=== PATIENT | female | born 1990 ===

== ENCOUNTER 2018-01-16 02:42 | Emergency (ER) | payer OTHER ==
[2018-01-16 02:54] VITALS: RESP 18; TEMP 97.6
[2018-01-16] MEDS ORDERED: TDAP Vaccine 0.5 mL Syr IM ONE ×2 (03:10→03:47)
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
[2018-01-16] MEDS ORDERED: Lidocaine 1% 5ml Abboject IJ STA (03:41)
[2018-01-16 03:48] LABS: ALB/GLOB RATIO 1.3 (1.1-1.8); ALBUMIN 3.8 g/dL (3.0-4.8); ALT/SGPT 22 U/L (7-56); AST/SGOT 20 U/L (14-36); BLOOD UREA NITROGEN 21 mg/dL (7-21); CALCIUM 8.6 mg/dL (8.4-10.5); GFR NON-AFRICAN AMERICAN > 60
[2018-01-16] MEDS ORDERED: Lidocaine 1% 5ml Abboject ONE (03:51)
[2018-01-16 04:02] LABS: INR 0.99; PARTIAL THROMBOPLASTIN TIME 29.1 Seconds (25.1-36.5); PROTHROMBIN TIME 11.3 SECONDS (9.4-12.5)
[2018-01-16 04:03] LABS: BASO # 0.01 K/mm3 (0.0-2.0); BASO % 0.2 % (0.0-3.0); EOS # 0.1 (0.0-0.7); EOS % 1.3 % (1.5-5.0); GRAN # 3.67 (1.4-6.5); GRAN % 67.2 % (50.0-68.0); HEMOGLOBIN 11.8 g/dL (12.0-16.0); LYMPH # 1.4 (1.2-3.4); LYMPH % 24.7 % (22.0-35.0); MEAN CELL VOLUME 80.2 fl (80.0-105.0); MEAN CORPUSCULAR HEMOGLOBIN 27.5 pg (25.0-35.0); MEAN CORPUSCULAR HGB CONC 34.3 g/dl (31.0-37.0); MEAN PLATELET VOLUME 10.2 fl (7.0-11.0); MONO # 0.4 (0.1-0.6); MONO % 6.6 % (1.0-6.0); RBC 4.29 10^6/uL (3.5-6.1); RED CELL DISTRIBUTION WIDTH 13.7 % (11.5-14.5); WHITE BLOOD COUNT 5.5 10^3/uL (4.5-11.0)
[2018-01-16] MEDS ORDERED: Oxycodone/Acetaminophen 5/325 mg Tab PO STA (04:25)
[2018-01-16] MEDS ORDERED: Amoxicillin-Clav 875-125 mg Tab PO STA (06:13)
[2018-01-16 06:34] VITALS: BP 135/80; PULSE 90; O2SAT 98
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
== END 2018-01-16 06:34 | disposition home or self-care (01) ==
LOC: ED 02:42
DX: S02.2XXA Fracture of nasal bones, initial encounter for closed fracture (principal); Y04.0XXA Assault by unarmed brawl or fight, initial encounter; Z32.00 Encounter for pregnancy test, result unknown; Z23 Encounter for immunization

== ENCOUNTER 2018-02-28 09:41 | Emergency (ER) | payer OTHER ==
[2018-02-28 10:26] VITALS: BMI 20.1
[2018-02-28 10:34] VITALS: RESP 18
[2018-02-28] MEDS ORDERED: Sodium Chloride 0.9% 1,000 ML IV SCH (11:00)
--- NOTE | 2018-02-28 11:06 | ED PDOC ---
Arrival/HPI - General Historian: Patient - History of Present Illness Narrative History of Present Illness (Text): 02/28/18 11:40 Patient is a 27-year-old female with PMH of ureteral stent, who came in with a chief complaint of left thumb pain and swelling that began a > 1 week ago after she removed her artificial nail by force. Patient reports her nail became reddish and swollen and has been getting progressively worse over the course of the last 1.5 weeks. Patient states she has some green/yellowish puss that is under her nailbed, and she attempted to puncture it with a tac, however this worsened the pain/swelling. Patient states that this has happened before, where she drained her nailbed of her left index finger herself with a tac. Of note, Patient has history of ureteral stent (L), and states that over the past month she's been experiencing dysuria, hematuria, and increased frequency. Patient otherwise denies nausea, vomiting, fever, chills, headache, chest pain, shortness of breath, and/or diarrhea/constipation. 02/28/18 11:57 Time/Duration: > week Symptom Course: Worsening Quality: Throbbing Severity Level: 6 Associated Symptoms (Text): 02/28/18 11:04 No fever no chills no nausea no vomiting 02/28/18 11:05 Patient complains of dysuria, increased frequency, cloudy dark yellow urine, hematuria, <Blanche Portillo - Last Filed: 02/28/18 15:25> <Onel Kumari - Last Filed: 03/01/18 20:12> - General Chief Complaint: Finger,Hand,&Wrist Time Seen by Provider: 02/28/18 10:28 Past Medical History - Provider Review Nursing Documentation Reviewed: Yes - Patient History Narrative Patient History: 2x previous similar problem - Infectious Disease Hx of Infectious Diseases: None - Cardiac Hx Cardiac Disorders: No - Pulmonary Hx Respiratory Disorders: No - Neurological Hx Neurological Disorder: No - HEENT Other/Comment: Use eyeglasses - Renal Hx Renal Disorder: Yes Hx Kidney Stones: Yes (+ stents) - Endocrine/Metabolic Hx Endocrine Disorders: No - Hematological/Oncological Hx Blood Disorders: Yes (ANEMIA) - Integumentary Hx Dermatological Disorder: No - Musculoskeletal/Rheumatological Hx Musculoskeletal Disorders: No - Gastrointestinal Hx Gastrointestinal Disorders: No - Genitourinary/Gynecological Hx Genitourinary Disorders: No - Psychiatric Hx Psychophysiologic Disorder: No Hx Substance Use: No - Surgical History Hx Orthopedic Surgery: Yes Other/Comment: Metal Selvin to LLeft Femur at age 12. Ureteral stents - Anesthesia Hx Anesthesia: Yes Hx Anesthesia Reactions: No Hx Malignant Hyperthermia: No <Blanche Portillo - Last Filed: 02/28/18 15:25> Family/Social History - Physician Review Nursing Documentation Reviewed: Yes Family/Social History: No Known Family HX Smoking Status: Never Smoked Hx Alcohol Use: No Hx Substance Use: No Hx Substance Use Treatment: No <Blanche Portillo - Last Filed: 02/28/18 15:25> Allergies/Home Meds <Blanche Portillo - Last Filed: 02/28/18 15:25> <Onel Kumari - Last Filed: 03/01/18 20:12> Allergies/Adverse Reactions: Allergies shellfish derived Allergy (Verified 01/27/18 12:04) ANAPHYLAXIS Home Medications: Home Meds Medication Instructions Recorded Confirmed Pnv No.95/Ferrous Fum/Folic AC 1 tab PO DAILY 02/28/18 02/28/18 [ Vitamin Tablet] Review of Systems - Review of Systems Constitutional: Normal Eyes: Normal ENT: Normal Respiratory: Normal Cardiovascular: Normal Gastrointestinal: Normal Genitourinary Female: Dysuria, Frequency, Hematuria Musculoskeletal: Normal Skin: Skin Lesions (swelling, reddness of left thumb) Neurological: Normal Endocrine: Normal Hemo/Lymphatic: Normal Psychiatric: Normal <Blanche Portillo - Last Filed: 02/28/18 15:25> Physical Exam Vital Signs Temp Pulse Resp BP Pulse Ox 02/28/18 10:33 98.4 F 91 H 18 84/69 L 98 Temperature: Afebrile Blood Pressure: Hypotensive Pulse: Tachycardic Respiratory Rate: Normal Appearance: Positive for: Non-Toxic, Comfortable Pain Distress: Moderate Mental Status: Positive for: Alert and Oriented X 3 - Systems Exam Head: Present: Atraumatic, Normocephalic Pupils: Present: PERRL Extroacular Muscles: Present: EOMI Conjunctiva: Present: Normal Ears: Present: Normal Mouth: Present: Moist Mucous Membranes Neck: Present: Normal Range of Motion Respiratory/Chest: Present: Clear to Auscultation, Good Air Exchange. No: Respiratory Distress Cardiovascular: Present: Tachycardic Abdomen: Present: Tenderness (suprapubic ), Normal Bowel Sounds Back: Present: CVA Tenderness (left) Upper Extremity: Present: Swelling, Erythema (left thumb ), Neurovascularly Intact, Capillary Refill < 2s Lower Extremity: Present: Normal Inspection. No: Edema, CALF TENDERNESS Neurological: Present: GCS=15, CN II-XII Intact, Speech Normal Skin: Present: Warm, Dry, Rashes, Normal Color Psychiatric: Present: Alert, Oriented x 3, Normal Insight, Normal Concentration <Blanche Portillo - Last Filed: 02/28/18 15:25> Vital Signs Temp Pulse Resp BP Pulse Ox 02/28/18 16:10 98.3 F 81 18 110/60 100 02/28/18 13:46 86 18 99/71 L 98 02/28/18 10:33 98.4 F 91 H 18 84/69 L 98 <Onel Kumari - Last Filed: 03/01/18 20:12> Medical Decision Making ED Course and Treatment: 02/28/18 12:00 Impression: This is a 27 year old F with PMH of ureteral stent placement (L), pyelonephritis who presents with left thumb pain and dysuria. Assessment: * Paronychia * Pyelonephritis Plan: Paronychia: * No Incision / drainage indicated at this time * Keflex 500mg PO administered * Rocephin 1gram IVPB administered Pyelonephritis vs Obstructive Nephrolithiasis * CMP pending * CBC pending * CK pending * Urine Cx pending * Urinalysis pending * beta hCG pending * Renal ultrasound pending * NS @150mls/hr active * Keflex 500mg PO administered * Rocephin 1gram IVPB administered 02/28/18 12:57 Progress: Lab results available: U/A * Light yellow color * Cloudy appearance * pH 6.5 * Spec. Hyde 1.025 * Positive for: Protein 100, Blood -large H, Leukocyte Esterase - large H, Nitrate - Positive H * Negative for: Glucose, Ketones, Bilirubin * Pending for RBC, Pending for WBC CMP - within normal limits CBC - consistent with anemia; Hgb low 11.3 Medications: * Keflex 500mg PO administered * Rocephin 1gram IVPB administered Recommendations: Patient is to be transferred to higher level of care given that her is complicated by a diagnosis of obstructive nephrolithiasis. 02/28/18 15:34 The patient requested to sign out AGAINST MEDICAL ADVICE. This action is against my medical advice to the patient and the decision was made with informed refusal. The patient was told that further workup and/or immediate transfer for higher level of care is necessary and a full explanation of the rationale was given. The risks of leaving were explained to the patient and include but are not limited to increased morbidity and mortality, , and worsening of known or unknown conditions. Patient was AAOX3 and was able to make this informed decision and understood the clinical situation and my explanation of the risks of leaving. The patient voluntarily accepted these risks and signed an AMA form documenting our conversation. The patient was given the opportunity ask questions and reconsider. The patient was encouraged to return to emergency room at any time for further care. Patient was advised to follow-up with her primary care doctor as soon as possible. Re-evaluation Time: 14:45 Reassessment Condition: Re-examined, Unchanged - RAD Interpretation Radiology Orders: 02/28/18 10:57 RENAL [US] Stat OTHER FINDINGS: Echogenic focus in the renal pelvis likely proximal aspect of the double-J stent IMPRESSION: Unilateral moderate left hydronephrosis. 12mm calculus lower pole collecting system incompletely visualized proximal ureteral stent - Medication Orders Current Medication Orders: Sodium Chloride (Sodium Chloride 0.9%) 1,000 mls @ 150 mls/hr IV .Q6H40M [facility] <Blanche Portillo - Last Filed: 02/28/18 15:25> ED Course and Treatment: 02/28/18 16:38 patient was advised to be admitted to the hospital for acute inpt treatment. patient states that she had to leave in order to prepare herself for admission by finding proper childcare. patient understood to return immediately for new or worsening symptoms. case was discussed with dr. andersen, urology education program coordinator and agrees with patient transfer to [facility] [place] where the patient's urologist is in addition to obgyn consult ation. - Lab Interpretations Lab Results: Total Bilirubin 0.3 mg/dL (0.2-1.3) 02/28/18 12:31 AST 18 U/L (14-36) 02/28/18 12:31 ALT 27 U/L (7-56) 02/28/18 12:31 Alkaline Phosphatase 56 U/L (38-126) 02/28/18 12:31 Total Protein 6.8 g/dL (5.8-8.3) 02/28/18 12:31 Albumin 3.6 g/dL (3.0-4.8) 02/28/18 12:31 Globulin 3.1 gm/dL 02/28/18 12:31 Albumin/Globulin Ratio 1.2 (1.1-1.8) 02/28/18 12:31 Urine Color Light yellow (YELLOW) 02/28/18 12:17 Urine Appearance Cloudy (CLEAR) 02/28/18 12:17 Urine pH 6.5 (4.7-8.0) 02/28/18 12:17 Ur Specific Hyde 1.025 (1.005-1.035) 02/28/18 12:17 Urine Protein 100 mg/dL (<30 mg/dL) H 02/28/18 12:17 Urine Glucose (UA) Negative mg/dL (NEGATIVE) 02/28/18 12:17 Urine Ketones Negative mg/dL (NEGATIVE) 02/28/18 12:17 Urine Blood Large (NEGATIVE) H 02/28/18 12:17 Urine Nitrate Positive (NEGATIVE) H 02/28/18 12:17 Urine Bilirubin Negative (NEGATIVE) 02/28/18 12:17 Urine Urobilinogen 0.2 E.U./dL (<1 E.U./dL) 02/28/18 12:17 Ur Leukocyte Esterase Large Jose Carlos/uL (NEGATIVE) H 02/28/18 12:17 Urine RBC Tntc /hpf (0-2) H 02/28/18 12:17 Urine WBC Tntc /hpf (0-6) H 02/28/18 12:17 Ur Epithelial Cells 3 - 4 /hpf (0-5) 02/28/18 12:17 Urine Bacteria Large /hpf (NONE) 02/28/18 12:17 - RAD Interpretation Radiology Orders: 02/28/18 10:57 RENAL [US] Stat - Medication Orders Current Medication Orders: Sodium Chloride (Sodium Chloride 0.9%) 1,000 mls @ 150 mls/hr IV .Q6H40M MYAH Last Admin: 02/28/18 12:34 Dose: 150 mls/hr eMAR Start Stop Document 02/28/18 12:34 LA (Rec: 02/28/18 12:37 LA [id number]) Intravenous Solution Start Date 02/28/18 Start Time 12:37 End Date 02/28/18 Discontinued Medications Cephalexin Monohydrate (Keflex) 500 mg PO STAT STA; Protocol Stop: 02/28/18 13:49 Last Admin: 02/28/18 14:29 Dose: 500 mg Ceftriaxone Sodium (Rocephin 1 Gram Ivpb) 1 gm in 100 mls @ 100 mls/hr IVPB ONCE STA; Protocol Stop: 02/28/18 15:57 Last Admin: 02/28/18 15:23 Dose: 100 mls/hr eMAR Start Stop Document 02/28/18 15:23 LA (Rec: 02/28/18 15:23 LA [id number]) Intravenous Solution Start Date 02/28/18 Start Time 15:23 End Date 02/28/18 End time 16:23 Total Infusion Time 60 <Onel Kumari - Last Filed: 03/01/18 20:12> Disposition/Present on Arrival - Present on Arrival Any Indicators Present on Arrival: No History of DVT/PE: No History of Uncontrolled Diabetes: No Urinary Catheter: No History of Decub. Ulcer: No History Surgical Site Infection Following: None <Blanche Portillo - Last Filed: 02/28/18 15:25> - Disposition Have Diagnosis and Disposition been Completed?: Yes Disposition Time: 16:28 Isolation: Special Contact Patient Plan: Discharge <Onel Kumari - Last Filed: 03/01/18 20:12> - Disposition Diagnosis: Pyelonephritis, Obstructive nephropathy, Disposition: AGAINST MEDICAL ADVICE Condition: GUARDED Discharge Instructions (ExitCare): Kidney Infection, Urinary Obstruction Additional Instructions: return immediately for any new or worsening symptoms. Referrals: Christa Wills MD [Primary Care Provider] - Follow up with primary Forms: [employer] (Uzbek)
[2018-02-28 12:50] LABS: PH,URINE 6.5 (4.7-8.0); URINE BILIRUBIN NEGATIVE (NEGATIVE); URINE BLOOD LARGE (NEGATIVE); URINE GLUCOSE (UA) NEGATIVE (NEGATIVE); URINE LEUKOCYTE ESTERASE LARGE Leu/uL (NEGATIVE); URINE PROTEIN 100 mg/dL (<30 mg/dL); URINE UROBILINOGEN 0.2 E.U./dL (<1 E.U./dL)
[2018-02-28 12:52] LABS: URINE APPEARANCE CLOUDY (CLEAR); URINE COLOR LIGHT YELLOW (YELLOW)
[2018-02-28 12:56] LABS: BASO # 0.02 K/mm3 (0.0-2.0); BASO % 0.3 % (0.0-3.0); EOS % 0.6 % (1.5-5.0); GRAN # 4.79 (1.4-6.5); GRAN % 71.9 % (50.0-68.0); HEMOGLOBIN 11.3 g/dL (12.0-16.0); LYMPH # 1.5 (1.2-3.4); LYMPH % 22.7 % (22.0-35.0); MEAN CELL VOLUME 80.8 fl (80.0-105.0); MEAN CORPUSCULAR HEMOGLOBIN 27.8 pg (25.0-35.0); MEAN CORPUSCULAR HGB CONC 34.5 g/dl (31.0-37.0); MEAN PLATELET VOLUME 9.8 fl (7.0-11.0); MONO # 0.3 (0.1-0.6); MONO % 4.5 % (1.0-6.0); RBC 4.06 10^6/uL (3.5-6.1); RED CELL DISTRIBUTION WIDTH 13.3 % (11.5-14.5); WHITE BLOOD COUNT 6.7 10^3/uL (4.5-11.0)
[2018-02-28 13:00] LABS: ALB/GLOB RATIO 1.2 (1.1-1.8); ALBUMIN 3.6 g/dL (3.0-4.8); ALT/SGPT 27 U/L (7-56); AST/SGOT 18 U/L (14-36); BLOOD UREA NITROGEN 13 mg/dL (7-21); CALCIUM 9.2 mg/dL (8.4-10.5); GFR NON-AFRICAN AMERICAN > 60
[2018-02-28 13:17] LABS: URINE RBC TNTC /hpf (0-2); URINE WBC TNTC /hpf (0-6)
[2018-02-28 13:18] LABS: URINE BACTERIA LARGE /hpf
--- NOTE | 2018-02-28 14:25 | US ---
Date of service: 02/28/2018 PROCEDURE: Ultrasound of the Kidneys HISTORY: left sided study, pain, rule out obstruction COMPARISON: None available. TECHNIQUE: Sonogram of the kidneys. FINDINGS: RIGHT KIDNEY: Measures: 4.1 x 11.1 cm. Normal in size, contour and echogenicity. No stone, solid mass lesion or hydronephrosis visualized. LEFT KIDNEY: Measures: 6.3 x 12.4 cm. Normal in size, contour and echogenicity. Moderate hydronephrosis. Lower pole calculus 12 mm. OTHER FINDINGS: Echogenic focus in the renal pelvis likely proximal aspect of the double-J stent. IMPRESSION: Unilateral moderate left hydronephrosis. 12 mm calculus lower pole collecting system. Incompletely visualized proximal ureteral stent.
[2018-02-28] MEDS ORDERED: cefTRIAXone 1 gm 1 GM/100 ML BAG IVPB STA (14:58)
[2018-02-28 16:11] VITALS: BP 110/60; PULSE 81; TEMP 98.3; O2SAT 100
== END 2018-02-28 16:43 | disposition left against medical advice (07) ==
LOC: ED 09:41
DX: O23.00 Infections of kidney in pregnancy, unspecified trimester (principal); Z3A.00 Weeks of gestation of pregnancy not specified; O26.839 Pregnancy related renal disease, unspecified trimester; N13.8 Other obstructive and reflux uropathy
CPT/HCPCS: 76770; 80053; 81001; 81025; 82550; 85025; 87086; 96365; 99284; J0696; J7030